=== PATIENT | female | born 1975 | race Two or more races ===

== ENCOUNTER 2017-02-18 05:10 | Emergency (ER) | payer OTHER ==
[~2017-02-18] VITALS: Ht 167.6 cm; Wt 104.3 kg
--- NOTE | ~2017-02-18 | EKG ---
PATIENT: SAMARIA AMEZQUITA UNIT #: [id number] Ventricular Rate: 68 BPM Atrial Rate: 68 BPM P-R Interval: 146 ms QRS Duration: 86 ms Q-T Interval: 432 ms QTC Calculation(Bezet): 459 ms P Ennis: 50 degrees Calculated R Ennis: 22 degrees Calculated T Ennis: 41 degrees Diagnosis Line: Normal sinus rhythm Diagnosis Line: Normal ECG Diagnosis Line: Diagnosis Line: Confirmed by SANA DONALDSON MD ([id number]) on 02/19/2017 Diagnosis Line: 3:02:06 PM INTERPRETING MD: MENDOZA HOLLAND
--- NOTE | ~2017-02-18 | CR63 ---
[facility] A Service of [facility] & [facility] RADIOLOGY TEXT RESULTS PATIENT: SAMARIA AMEZQUITA LOCATION: [facility] : 71 UNIT #: [id number] AGE: [address]: HUNTER GODOY SEX: F ORDER DR: [id number] [facility] [address] [place], [place] [address] [id number] MR#: [id number] #: [id number] NAME: SAMARIA AMEZQUITA : 1975 SEX: F STUDY DATE/TIME: 02/18/2017 6:04 UNIT: [facility] ROOM: STUDY DESCRIPTION: CR Chest 2 View Attending Physician: Hunter Godoy Aprn Ordering Physician: Hunter Godoy Aprn Primary Care Physician: No Primary Care Physician MEDICAL IMAGING REPORT This report is preliminary unless electronic signature is present EXAM Two view chest x-ray HISTORY Left-sided chest pain to mid region, started yesterday, smoker for 7 years. COMMENT Two views of the chest are reviewed. There is no prior. FINDINGS No pleural effusion. Top normal heart size. Minimal atelectasis likely left base. Otherwise the lungs are clear and there is no congestive failure. No pneumothorax. IMPRESSION Top normal heart size for age group. Minimal left base atelectasis otherwise no active disease. Dictated by... Adriana Chua M.D. THIS IS AN ELECTRONICALLY VERIFIED REPORT Adriana Chua M.D. at 02/19/2017 9:24 AM Favian TD: 02/19/2017 00:31 JOB #: [id number] MEDICAL IMAGING REPORT Page 1 of 1 COPY
== END 2017-02-18 07:17 | disposition home or self-care (01) ==
LOC: CED 05:10
DX: M94.0 Chondrocostal junction syndrome [Tietze] (principal); F17.210 Nicotine dependence, cigarettes, uncomplicated; Z88.5 Allergy status to narcotic agent; Z88.8 Allergy status to other drugs, medicaments and biological substances
CPT/HCPCS: 71020; 93005; 96372; 99283; J1885